=== PATIENT | male | born 1970 | race Caucasian/White ===

== ENCOUNTER 2016-12-02 14:38 | Inpatient (IN) | payer MEDICAID ==
[~2016-12-02] VITALS: Ht 175.3 cm; Wt 84.8 kg
[2016-12-02] VITALS (11 sets, daily range): BP systolic 132–169; BP diastolic 73–110
[2016-12-02 14:54] LABS: EOSINOPHILS # (AUTO) 0.1 /CMM (0.0-0.7); EOSINOPHILS % (AUTO) 0.4 % (0.0-6.0); HEMOGLOBIN 17.2 g/dL (13.5-17.5)
[2016-12-02 15:03] LABS: HEMATOCRIT 50 % (39-51); MEAN CORPUSCULAR HEMOGLOBIN 30 PG (26.0-33.0); MEAN CORPUSCULAR HGB CONC 34 g/dl (31.0-36.0); MEAN CORPUSCULAR VOLUME 87 fL (80-96); NEUTROPHILS % (AUTO) 82.6 % (43.0-81.0); PLATELET COUNT (AUTO) 191 /CMM (150-450); RDW COEFFICIENT OF VARIATION 12.3 (11.5-15.0); RED BLOOD CELL COUNT(AUTO) 5.74 MIL/uL (4.5-6.0); WHITE BLOOD COUNT (AUTO) 15.7 K/uL (4.3-11.0)
[2016-12-02 15:04] LABS: BASOPHILS # (AUTO) 0.1 /CMM (0.0-0.2); BASOPHILS % (AUTO) 0.7 % (0.0-2.0); LYMPHOCYTES # (AUTO) 1.6 /CMM (0.8-4.8); MONOCYTES % (AUTO) 6.3 % (2.0-12.0); NEUTROPHILS # (AUTO) 12.9 /CMM (1.8-8.9)
[2016-12-02 15:11] LABS: INR 0.97 (0.87-1.13); PROTHROMBIN TIME 10.1 SECS (9.5-12.7)
[2016-12-02 15:13] LABS: ALANINE AMINOTRANSFERASE 46 U/L (12-78); ALBUMIN 4.1 g/dL (3.4-5.0); ALKALINE PHOSPHATASE 100 U/L (46-116); ASPARTATE AMINOTRANSFERASE 21 U/L (15-37); BILIRUBIN,DIRECT 0.1 mg/dL (0.0-0.2); BILIRUBIN,TOTAL 0.9 mg/dL (0.2-1.0); CALCIUM, SERUM 9.3 mg/dL (8.5-10.1); CARBON DIOXIDE 29 mmol/L (21-32); CHLORIDE 105 mmol/L (98-107); CREATININE 1.1 mg/dL (0.6-1.3); GLUCOSE 130 mg/dL (74-106); POTASSIUM 4.9 mmol/L (3.5-5.1); SODIUM SERUM 139 mmol/L (136-145); TOTAL PROTEIN, SERUM 7.4 g/dL (6.4-8.2); UREA NITROGEN, BLOOD 17 mg/dL (7-18)
[2016-12-02 15:15] LABS: TROPONIN I < 0.017 ng/mL (0.00-0.056)
[2016-12-02 20:10] LABS: CALCIUM, SERUM 9.3 mg/dL (8.5-10.1); CREATININE 0.8 mg/dL (0.6-1.3); INR 1.01 (0.87-1.13); POTASSIUM 3.9 mmol/L (3.5-5.1); PROTHROMBIN TIME 10.8 SECS (9.5-12.7)
[2016-12-02 20:19] LABS: APPEARANCE,URINE SL CLOUDY (CLEAR); BILIRUBIN,URINE NEGATIVE (NEGATIVE); BLOOD, URINE 1+ Ery/uL (NEGATIVE); COLOR,URINE YELLOW (YELLOW); KETONES,URINE NEGATIVE (NEGATIVE); LEUKOCYTE ESTERASE ,URINE NEGATIVE (NEGATIVE); NITRITE, URINE NEGATIVE (NEGATIVE); PROTEIN,URINE 1+ mg/dl (NEGATIVE); UGLUCOSE NEGATIVE (NEGATIVE)
[2016-12-02 20:23] LABS: ALBUMIN 4.1 g/dL (3.4-5.0); BILIRUBIN,TOTAL 1.1 mg/dL (0.2-1.0); TOTAL PROTEIN, SERUM 7.6 g/dL (6.4-8.2)
[2016-12-02 20:24] LABS: THYROID STIMULATING HORMONE 0.966 uIU/mL (0.358-3.74)
[2016-12-02 20:27] LABS: BASOPHILS % (AUTO) 0.2 % (0.0-2.0); EOSINOPHILS # (AUTO) 0.1 /CMM (0.0-0.7); EOSINOPHILS % (AUTO) 0.4 % (0.0-6.0); HEMATOCRIT 54 % (39-51); HEMOGLOBIN 18.2 g/dL (13.5-17.5); LYMPHOCYTES % (AUTO) 12.4 % (20.0-44.0); MEAN CORPUSCULAR HEMOGLOBIN 30 PG (26.0-33.0); MEAN CORPUSCULAR HGB CONC 34 g/dl (31.0-36.0); MEAN CORPUSCULAR VOLUME 88 fL (80-96); MONOCYTES # (AUTO) 0.9 /CMM (0.1-1.30); MONOCYTES % (AUTO) 5.4 % (2.0-12.0); NEUTROPHILS # (AUTO) 12.9 /CMM (1.8-8.9); NEUTROPHILS % (AUTO) 81.6 % (43.0-81.0); PLATELET COUNT (AUTO) 188 /CMM (150-450); RDW COEFFICIENT OF VARIATION 13.4 (11.5-15.0); RED BLOOD CELL COUNT(AUTO) 6.05 MIL/uL (4.5-6.0); WHITE BLOOD COUNT (AUTO) 15.8 K/uL (4.3-11.0)
[2016-12-02 20:37] LABS: BACTERIA,URINE None seen /HPF (None Seen); SQUAMOUS EPITHELIAL CELL,UR Rare /HPF (None Seen); WBC,URINE 0-2 /HPF (0-3)
[2016-12-03] VITALS (23 sets, daily range): BP systolic 121–152; BP diastolic 51–102
[2016-12-03 07:34] LABS: BASOPHILS % (AUTO) 0.1 % (0.0-2.0); EOSINOPHILS # (AUTO) 0.2 /CMM (0.0-0.7); EOSINOPHILS % (AUTO) 1.4 % (0.0-6.0); HEMATOCRIT 49 % (39-51); LYMPHOCYTES # (AUTO) 2.8 /CMM (0.8-4.8); LYMPHOCYTES % (AUTO) 19.7 % (20.0-44.0); MEAN CORPUSCULAR HEMOGLOBIN 31 PG (26.0-33.0); MEAN CORPUSCULAR HGB CONC 35 g/dl (31.0-36.0); MEAN CORPUSCULAR VOLUME 89 fL (80-96); MONOCYTES # (AUTO) 1.1 /CMM (0.1-1.30); MONOCYTES % (AUTO) 7.7 % (2.0-12.0); NEUTROPHILS # (AUTO) 10.3 /CMM (1.8-8.9); NEUTROPHILS % (AUTO) 71.1 % (43.0-81.0); PLATELET COUNT (AUTO) 178 /CMM (150-450); RDW COEFFICIENT OF VARIATION 13.1 (11.5-15.0); RED BLOOD CELL COUNT(AUTO) 5.55 MIL/uL (4.5-6.0); WHITE BLOOD COUNT (AUTO) 14.4 K/uL (4.3-11.0)
[2016-12-03 07:45] LABS: CALCIUM, SERUM 8.9 mg/dL (8.5-10.1); CREATININE 0.9 mg/dL (0.6-1.3); MAGNESIUM 1.9 mg/dL (1.8-2.4); PHOSPHORUS 3.5 mg/dL (2.5-4.9); POTASSIUM 3.9 mmol/L (3.5-5.1)
[2016-12-03 07:48] LABS: INR 1.01 (0.87-1.13); PROTHROMBIN TIME 10.8 SECS (9.5-12.7)
[2016-12-03 08:18] LABS: THYROID STIMULATING HORMONE 1.261 uIU/mL (0.358-3.74)
[2016-12-04] VITALS (13 sets, daily range): BP systolic 130–155; BP diastolic 78–88
[2016-12-05] VITALS: BP 140/71
[2016-12-05 04:00] VITALS: BP 140/71
[2016-12-05 07:15] LABS: BASOPHILS % (AUTO) 0.3 % (0.0-2.0); EOSINOPHILS # (AUTO) 0.4 /CMM (0.0-0.7); EOSINOPHILS % (AUTO) 3.6 % (0.0-6.0); HEMATOCRIT 48 % (39-51); HEMOGLOBIN 16.8 g/dL (13.5-17.5); LYMPHOCYTES # (AUTO) 2.5 /CMM (0.8-4.8); LYMPHOCYTES % (AUTO) 21.3 % (20.0-44.0); MEAN CORPUSCULAR HEMOGLOBIN 31 PG (26.0-33.0); MEAN CORPUSCULAR HGB CONC 35 g/dl (31.0-36.0); MEAN CORPUSCULAR VOLUME 88 fL (80-96); MONOCYTES # (AUTO) 0.8 /CMM (0.1-1.30); MONOCYTES % (AUTO) 6.6 % (2.0-12.0); NEUTROPHILS % (AUTO) 68.2 % (43.0-81.0); PLATELET COUNT (AUTO) 157 /CMM (150-450); RDW COEFFICIENT OF VARIATION 12.8 (11.5-15.0); RED BLOOD CELL COUNT(AUTO) 5.47 MIL/uL (4.5-6.0); WHITE BLOOD COUNT (AUTO) 11.7 K/uL (4.3-11.0)
[2016-12-05 07:41] LABS: CALCIUM, SERUM 8.8 mg/dL (8.5-10.1); CREATININE 0.8 mg/dL (0.6-1.3); PHOSPHORUS 3.6 mg/dL (2.5-4.9); POTASSIUM 3.5 mmol/L (3.5-5.1)
[2016-12-05 08:00] VITALS: BP 149/74
[2016-12-05 12:00] VITALS: BP 124/72
[2016-12-05 16:00] VITALS: BP_SYST 130; BP_DIAS 37; BP_DIAS 77
[2016-12-05 20:00] VITALS: BP_SYST 121; BP_DIAS 75; BP_DIAS 79
[2016-12-06] VITALS (7 sets, daily range): BP systolic 116–138; BP diastolic 60–84
[2016-12-07] VITALS: BP 124/68
[2016-12-07 04:00] VITALS: BP 147/82
[2016-12-07 07:22] LABS: EOSINOPHILS # (AUTO) 0.8 /CMM (0.0-0.7); HEMATOCRIT 51 % (39-51); HEMOGLOBIN 17.5 g/dL (13.5-17.5); LYMPHOCYTES # (AUTO) 2.5 /CMM (0.8-4.8); LYMPHOCYTES % (AUTO) 25.9 % (20.0-44.0); MEAN CORPUSCULAR HEMOGLOBIN 31 PG (26.0-33.0); MEAN CORPUSCULAR HGB CONC 35 g/dl (31.0-36.0); MEAN CORPUSCULAR VOLUME 89 fL (80-96); MONOCYTES % (AUTO) 10.7 % (2.0-12.0); NEUTROPHILS # (AUTO) 5.3 /CMM (1.8-8.9); NEUTROPHILS % (AUTO) 55.4 % (43.0-81.0); PLATELET COUNT (AUTO) 154 /CMM (150-450); RDW COEFFICIENT OF VARIATION 12.6 (11.5-15.0); RED BLOOD CELL COUNT(AUTO) 5.71 MIL/uL (4.5-6.0); WHITE BLOOD COUNT (AUTO) 9.5 K/uL (4.3-11.0)
[2016-12-07 07:39] LABS: CREATININE 0.8 mg/dL (0.6-1.3); MAGNESIUM 2.1 mg/dL (1.8-2.4); PHOSPHORUS 3.8 mg/dL (2.5-4.9); POTASSIUM 3.6 mmol/L (3.5-5.1)
[2016-12-07 08:00] VITALS: BP 147/75
[2016-12-07 12:00] VITALS: BP 138/79
[2016-12-07 13:15] LABS: *CARD ANTI-CARDIOLIPIN AB IgA <9 APL U/mL (0-11); *CARD ANTI-CARDIOLIPIN AB IgG <9 GPL U/mL (0-14); *CARD ANTI-CARDIOLIPIN AB IgM <9 MPL U/mL (0-12)
[2016-12-07 16:00] VITALS: BP 125/79
[2016-12-07 20:00] VITALS: BP 120/71
[2016-12-08] VITALS: BP 126/84
[2016-12-08 01:12] LABS: *ANTITHROMBIN III AG 79 % (72-124); *DILUTE PROTHROMBIN TIME (dPT) 47.7 sec (0.0-55.0); *PTT-LA 44.5 sec (0.0-43.6); *THROMBIN TIME 17.7 sec (0.0-20.9); *dPT CONFIRM RATIO 1.08 Ratio (0.00-1.40); *dRVVT 47.8 sec (0.0-47.0); PROTEIN C ACTIVITY 100 % (73-180); PROTEIN S ACTIVITY 119 % (63-140)
[2016-12-08 04:00] VITALS: BP 125/77
[2016-12-08 05:13] LABS: *PTT-LA MIX 38.5 sec (0.0-40.6); *dRVVT MIX 42.2 sec (0.0-47.0)
[2016-12-08 08:00] VITALS: BP 102/72
[2016-12-08 15:15] LABS: *PTT-LA INC MIX 42.3 sec (0.0-40.6)
[2016-12-08 16:00] VITALS: BP 115/70
[2016-12-08 20:00] VITALS: BP 119/68
[2016-12-08 22:28] VITALS: BP 119/68
[2016-12-09 00:58] VITALS: BP 120/70
[2016-12-09 07:07] LABS: BASOPHILS % (AUTO) 0.5 % (0.0-2.0); EOSINOPHILS # (AUTO) 0.7 /CMM (0.0-0.7); EOSINOPHILS % (AUTO) 6.4 % (0.0-6.0); HEMATOCRIT 48 % (39-51); HEMOGLOBIN 16.9 g/dL (13.5-17.5); LYMPHOCYTES % (AUTO) 27.6 % (20.0-44.0); MEAN CORPUSCULAR HEMOGLOBIN 31 PG (26.0-33.0); MEAN CORPUSCULAR HGB CONC 35 g/dl (31.0-36.0); MEAN CORPUSCULAR VOLUME 87 fL (80-96); MONOCYTES # (AUTO) 1.1 /CMM (0.1-1.30); MONOCYTES % (AUTO) 10.6 % (2.0-12.0); NEUTROPHILS # (AUTO) 5.9 /CMM (1.8-8.9); NEUTROPHILS % (AUTO) 54.9 % (43.0-81.0); PLATELET COUNT (AUTO) 168 /CMM (150-450); RDW COEFFICIENT OF VARIATION 12.7 (11.5-15.0); RED BLOOD CELL COUNT(AUTO) 5.52 MIL/uL (4.5-6.0); WHITE BLOOD COUNT (AUTO) 10.8 K/uL (4.3-11.0)
[2016-12-09 07:52] LABS: CREATININE 0.8 mg/dL (0.6-1.3); PHOSPHORUS 3.5 mg/dL (2.5-4.9); POTASSIUM 3.8 mmol/L (3.5-5.1)
[2016-12-09 08:00] VITALS: BP 132/77
[2016-12-09 16:00] VITALS: BP_SYST 122; BP_DIAS 61; BP_DIAS 71
[2016-12-09 20:00] VITALS: BP 117/71
[2016-12-10] VITALS: BP 94/56
[2016-12-10 04:00] VITALS: BP 127/75
[2016-12-10 08:00] VITALS: BP 169/73
[2016-12-10 14:17] LABS: *FACTOR II, DNA ANALYSIS Negative (.)
[2016-12-10 16:00] VITALS: BP 111/75
[2016-12-10 20:00] VITALS: BP 136/81
[2016-12-11 00:08] VITALS: BP 136/81
[2016-12-11 04:00] VITALS: BP 135/95
[2016-12-11 07:20] LABS: BASOPHILS % (AUTO) 0.3 % (0.0-2.0); EOSINOPHILS # (AUTO) 0.7 /CMM (0.0-0.7); EOSINOPHILS % (AUTO) 7.3 % (0.0-6.0); HEMATOCRIT 48 % (39-51); HEMOGLOBIN 16.3 g/dL (13.5-17.5); LYMPHOCYTES # (AUTO) 2.8 /CMM (0.8-4.8); LYMPHOCYTES % (AUTO) 28.8 % (20.0-44.0); MEAN CORPUSCULAR HEMOGLOBIN 31 PG (26.0-33.0); MEAN CORPUSCULAR HGB CONC 34 g/dl (31.0-36.0); MEAN CORPUSCULAR VOLUME 89 fL (80-96); MONOCYTES # (AUTO) 0.9 /CMM (0.1-1.30); MONOCYTES % (AUTO) 9.4 % (2.0-12.0); NEUTROPHILS # (AUTO) 5.2 /CMM (1.8-8.9); NEUTROPHILS % (AUTO) 54.2 % (43.0-81.0); PLATELET COUNT (AUTO) 186 /CMM (150-450); RDW COEFFICIENT OF VARIATION 12.7 (11.5-15.0); RED BLOOD CELL COUNT(AUTO) 5.34 MIL/uL (4.5-6.0); WHITE BLOOD COUNT (AUTO) 9.6 K/uL (4.3-11.0)
[2016-12-11 07:40] LABS: CREATININE 0.8 mg/dL (0.6-1.3); MAGNESIUM 1.9 mg/dL (1.8-2.4); POTASSIUM 3.5 mmol/L (3.5-5.1)
[2016-12-11 08:00] VITALS: BP 126/72
[2016-12-11 16:00] VITALS: BP 129/77
[2016-12-11 20:00] VITALS: BP 126/72
[2016-12-12 04:00] VITALS: BP 123/77
[2016-12-12 08:00] VITALS: BP 128/76
[2016-12-12 16:00] VITALS: BP 121/76
[2016-12-12 20:00] VITALS: BP 121/76
[2016-12-13] VITALS: BP 121/76
[2016-12-13 08:00] VITALS: BP 123/80
[2016-12-13 16:00] VITALS: BP 122/75
[2016-12-13 20:00] VITALS: BP 117/63
[2016-12-14 04:00] VITALS: BP 140/75
[2016-12-14 08:00] VITALS: BP 134/83
[2016-12-14 16:00] VITALS: BP 111/73
[2016-12-14 20:40] VITALS: BP 122/84
[2016-12-15 04:40] VITALS: BP 150/84
[2016-12-15 07:03] LABS: CALCIUM, SERUM 9.1 mg/dL (8.5-10.1); CREATININE 0.8 mg/dL (0.6-1.3); POTASSIUM 3.4 mmol/L (3.5-5.1)
[2016-12-15 07:20] LABS: BASOPHILS % (AUTO) 0.4 % (0.0-2.0); EOSINOPHILS # (AUTO) 0.5 /CMM (0.0-0.7); HEMATOCRIT 46 % (39-51); HEMOGLOBIN 15.7 g/dL (13.5-17.5); LYMPHOCYTES # (AUTO) 2.4 /CMM (0.8-4.8); LYMPHOCYTES % (AUTO) 19.2 % (20.0-44.0); MEAN CORPUSCULAR HEMOGLOBIN 30 PG (26.0-33.0); MEAN CORPUSCULAR HGB CONC 34 g/dl (31.0-36.0); MEAN CORPUSCULAR VOLUME 88 fL (80-96); MONOCYTES # (AUTO) 1.2 /CMM (0.1-1.30); MONOCYTES % (AUTO) 9.3 % (2.0-12.0); NEUTROPHILS # (AUTO) 8.5 /CMM (1.8-8.9); NEUTROPHILS % (AUTO) 67.1 % (43.0-81.0); PLATELET COUNT (AUTO) 200 /CMM (150-450); RDW COEFFICIENT OF VARIATION 12.7 (11.5-15.0); RED BLOOD CELL COUNT(AUTO) 5.24 MIL/uL (4.5-6.0); WHITE BLOOD COUNT (AUTO) 12.6 K/uL (4.3-11.0)
[2016-12-15 08:00] VITALS: BP 129/84
[2016-12-15 16:00] VITALS: BP 130/79
[2016-12-15 17:04] LABS: INR 1.09 (0.87-1.13); PROTHROMBIN TIME 11.7 SECS (9.5-12.7)
[2016-12-15 20:00] VITALS: BP 148/80
[2016-12-16] VITALS: BP 148/80
[2016-12-16 03:56] VITALS: BP 133/72
[2016-12-16 06:47] LABS: BASOPHILS % (AUTO) 0.3 % (0.0-2.0); EOSINOPHILS # (AUTO) 0.2 /CMM (0.0-0.7); EOSINOPHILS % (AUTO) 1.6 % (0.0-6.0); HEMATOCRIT 45 % (39-51); HEMOGLOBIN 15.6 g/dL (13.5-17.5); LYMPHOCYTES # (AUTO) 2.5 /CMM (0.8-4.8); LYMPHOCYTES % (AUTO) 23.1 % (20.0-44.0); MEAN CORPUSCULAR HEMOGLOBIN 31 PG (26.0-33.0); MEAN CORPUSCULAR HGB CONC 35 g/dl (31.0-36.0); MEAN CORPUSCULAR VOLUME 88 fL (80-96); MONOCYTES % (AUTO) 9.4 % (2.0-12.0); NEUTROPHILS % (AUTO) 65.6 % (43.0-81.0); PLATELET COUNT (AUTO) 246 /CMM (150-450); RDW COEFFICIENT OF VARIATION 12.6 (11.5-15.0); WHITE BLOOD COUNT (AUTO) 10.7 K/uL (4.3-11.0)
[2016-12-16 06:59] LABS: CALCIUM, SERUM 9.1 mg/dL (8.5-10.1); CREATININE 0.7 mg/dL (0.6-1.3); MAGNESIUM 1.9 mg/dL (1.8-2.4); POTASSIUM 3.5 mmol/L (3.5-5.1)
[2016-12-16 08:00] VITALS: BP 124/83
[2016-12-16 14:31] LABS: INR 1.11 (0.87-1.13)
[2016-12-16 16:00] VITALS: BP 118/74
[2016-12-16 20:00] VITALS: BP 129/75
[2016-12-17 04:00] VITALS: BP 137/84
[2016-12-17 08:00] VITALS: BP 138/79
[2016-12-17 08:58] LABS: INR 1.11 (0.87-1.13)
[2016-12-17 16:00] VITALS: BP_SYST 124; BP_DIAS 72; BP_DIAS 77
[2016-12-17 20:00] VITALS: BP 117/84
[2016-12-18 04:00] VITALS: BP 131/82
[2016-12-18 07:07] LABS: INR 1.24 (0.87-1.13); PROTHROMBIN TIME 13.5 SECS (9.5-12.7)
[2016-12-18 08:00] VITALS: BP_SYST 133; BP_SYST 90; BP_DIAS 48; BP_DIAS 82
[2016-12-18 16:00] VITALS: BP 130/74
[2016-12-18 20:00] VITALS: BP 116/72
[2016-12-19 04:00] VITALS: BP 130/80
[2016-12-19 06:40] LABS: INR 1.49 (0.87-1.13); PROTHROMBIN TIME 16.3 SECS (9.5-12.7)
[2016-12-19 07:05] LABS: CALCIUM, SERUM 9.4 mg/dL (8.5-10.1); CREATININE 0.8 mg/dL (0.6-1.3); POTASSIUM 3.6 mmol/L (3.5-5.1)
[2016-12-19 08:00] VITALS: BP 130/80
[2016-12-19 16:00] VITALS: BP 121/72
[2016-12-20 04:00] VITALS: BP 130/74
[2016-12-20 06:41] LABS: INR 1.73 (0.87-1.13); PROTHROMBIN TIME 19.2 SECS (9.5-12.7)
[2016-12-20 08:00] VITALS: BP 130/74
[2016-12-20 16:00] VITALS: BP 123/69
[2016-12-20 20:00] VITALS: BP 114/69
[2016-12-21 04:00] VITALS: BP 121/74
[2016-12-21 06:49] LABS: BASOPHILS % (AUTO) 0.4 % (0.0-2.0); EOSINOPHILS # (AUTO) 0.4 /CMM (0.0-0.7); EOSINOPHILS % (AUTO) 3.8 % (0.0-6.0); HEMATOCRIT 47 % (39-51); HEMOGLOBIN 16.3 g/dL (13.5-17.5); LYMPHOCYTES # (AUTO) 2.2 /CMM (0.8-4.8); LYMPHOCYTES % (AUTO) 23.4 % (20.0-44.0); MEAN CORPUSCULAR HEMOGLOBIN 31 PG (26.0-33.0); MEAN CORPUSCULAR HGB CONC 35 g/dl (31.0-36.0); MEAN CORPUSCULAR VOLUME 89 fL (80-96); MONOCYTES % (AUTO) 10.6 % (2.0-12.0); NEUTROPHILS # (AUTO) 5.8 /CMM (1.8-8.9); NEUTROPHILS % (AUTO) 61.8 % (43.0-81.0); PLATELET COUNT (AUTO) 221 /CMM (150-450); RDW COEFFICIENT OF VARIATION 12.4 (11.5-15.0); RED BLOOD CELL COUNT(AUTO) 5.32 MIL/uL (4.5-6.0); WHITE BLOOD COUNT (AUTO) 9.5 K/uL (4.3-11.0)
[2016-12-21 06:59] LABS: INR 1.55 (0.87-1.13)
[2016-12-21 07:19] LABS: CALCIUM, SERUM 9.1 mg/dL (8.5-10.1); CREATININE 0.7 mg/dL (0.6-1.3); POTASSIUM 3.8 mmol/L (3.5-5.1)
[2016-12-21 08:00] VITALS: BP 126/79
[2016-12-21 16:00] VITALS: BP 133/77
[2016-12-21 20:00] VITALS: BP 114/68
[2016-12-22 04:00] VITALS: BP 119/72
[2016-12-22 06:43] LABS: BASOPHILS % (AUTO) 0.3 % (0.0-2.0); EOSINOPHILS # (AUTO) 0.4 /CMM (0.0-0.7); EOSINOPHILS % (AUTO) 5.2 % (0.0-6.0); HEMATOCRIT 41 % (39-51); HEMOGLOBIN 13.9 g/dL (13.5-17.5); LYMPHOCYTES # (AUTO) 1.9 /CMM (0.8-4.8); LYMPHOCYTES % (AUTO) 22.4 % (20.0-44.0); MEAN CORPUSCULAR HEMOGLOBIN 31 PG (26.0-33.0); MEAN CORPUSCULAR HGB CONC 35 g/dl (31.0-36.0); MEAN CORPUSCULAR VOLUME 89 fL (80-96); MONOCYTES # (AUTO) 0.9 /CMM (0.1-1.30); MONOCYTES % (AUTO) 10.4 % (2.0-12.0); NEUTROPHILS # (AUTO) 5.2 /CMM (1.8-8.9); NEUTROPHILS % (AUTO) 61.7 % (43.0-81.0); PLATELET COUNT (AUTO) 208 /CMM (150-450); RDW COEFFICIENT OF VARIATION 12.5 (11.5-15.0); RED BLOOD CELL COUNT(AUTO) 4.57 MIL/uL (4.5-6.0); WHITE BLOOD COUNT (AUTO) 8.5 K/uL (4.3-11.0)
[2016-12-22 07:20] LABS: INR 1.92 (0.87-1.13); PROTHROMBIN TIME 21.4 SECS (9.5-12.7)
[2016-12-22 08:00] VITALS: BP 124/71
[2016-12-22 12:32] LABS: CALCIUM, SERUM 9.2 mg/dL (8.5-10.1); CREATININE 0.8 mg/dL (0.6-1.3); MAGNESIUM 1.9 mg/dL (1.8-2.4); POTASSIUM 3.8 mmol/L (3.5-5.1)
[2016-12-22 16:00] VITALS: BP 114/70
[2016-12-22 20:00] VITALS: BP 110/65
[2016-12-23 04:00] VITALS: BP_SYST 120; BP_DIAS 70; BP_DIAS 71
[2016-12-23 06:45] LABS: INR 2.31 (0.87-1.13); PROTHROMBIN TIME 26.1 SECS (9.5-12.7)
[2016-12-23 08:00] VITALS: BP 118/72
[2016-12-23] MEDS ORDERED: ESCI10TA PO (11:03)
[2016-12-23] MEDS ORDERED: WARF2TAB57 PO (11:03)
[2016-12-23 16:00] VITALS: BP 113/79
[2016-12-23 20:00] VITALS: BP 107/48
[2016-12-24 00:29] VITALS: BP 107/48
[2016-12-24 04:00] VITALS: BP 114/73
[2016-12-24] MEDS ORDERED: ASPI-605 PO (07:56)
[2016-12-24 08:00] VITALS: BP 126/75
[2016-12-24 09:47] LABS: INR 2.42 (0.87-1.13); PROTHROMBIN TIME 27.4 SECS (9.5-12.7)
== END 2016-12-24 16:49 | disposition home or self-care (01) | DRG 45 ==
LOC: ER 14:40 → EDBD 14:40 → ICUOV 17:18 → TELE-TD 12-03 08:30 → TELE1 12-06 12:51 → MEDSG1 12-08 10:19
DX: I63.512 Cerebral infarction due to unspecified occlusion or stenosis of left middle cerebral artery (principal); E87.2 Acidosis; D68.62 Lupus anticoagulant syndrome; G81.91 Hemiplegia, unspecified affecting right dominant side; G93.89 Other specified disorders of brain; R47.01 Aphasia; D72.829 Elevated white blood cell count, unspecified; E78.5 Hyperlipidemia, unspecified; R13.10 Dysphagia, unspecified; R00.1 Bradycardia, unspecified; F32.9 Major depressive disorder, single episode, unspecified; M79.89 Other specified soft tissue disorders
CPT/HCPCS: 36415; 70450-TC; 70496-TC; 70498-TC; 71010-TC; 80048-TC; 80053-TC; 80061-TC; 80076-TC; 80305; 81000-TC; 81240; 81241; 82962-TC; 83090; 83605-TC; 83735-TC; 83880; 84100-TC; 84443-TC; 84484-TC; 85025-TC; 85300; 85301; 85303; 85610-TC; 85613; 85652-TC; 85670; 85705; 85730-TC; 85732; 86147; 86592; 86850-TC; 87040-TC; 87081-TC; 87086-TC; 92526; 92611-TC; 93307-TC; 93971-TC; 94799-TC; 97001-TC; 97110-TC; 97112-TC; 97116-TC; 97530-TC; 97535-TC; A4606; C9113; J1650; J2270; J2405; J3480; J3490; J7050; Q9967; Z7610